=== PATIENT | female | born 1985 | race Caucasian/White ===

== ENCOUNTER 2019-07-05 07:21 | Day surgery (SDC) | payer OTHER ==
[~2019-07-05] VITALS: Ht 160 cm; Wt 72.6 kg
[2019-07-05] MEDS ORDERED: BUPIVACAINE-MPF 0.5% 30 ML VIAL INJ ONE (08:38)
[2019-07-05] MEDS ORDERED: SEVOFLURANE 250 ML BTL INH ONE (08:53)
[2019-07-05] MEDS ORDERED: PROPOFOL 200 MG/20 ML VIAL IV ONE (08:53)
[2019-07-05] MEDS ORDERED: LIDOCAINE 2% 100 MG/5 ML SYR IVP ONE (08:53)
[2019-07-05] MEDS ORDERED: MIDAZOLAM 2 MG/2 ML VIAL ONE (08:56)
[2019-07-05] MEDS ORDERED: fentaNYL 0.05 MG/ML VIAL ONE (08:56)
[2019-07-05] MEDS ORDERED: HYDROmorphone 1 MG/ML AMP IVP PRN ×2 (09:20→09:45)
[2019-07-05] MEDS ORDERED: ONDANSETRON 4 MG/2 ML VIAL IVP PRN (09:20)
[2019-07-05] MEDS ORDERED: HYDROcodone/APAP 5/325 MG 1 TAB TAB PO PRN (09:45)
[2019-07-05] MEDS ORDERED: MORPHINE SULFATE 4 MG/ML SYR IV PRN (09:45)
[2019-07-05] MEDS ORDERED: MORPHINE SULFATE 2 MG/ML SYR IVP PRN (09:45)
[2019-07-05] MEDS ORDERED: ACETAMINOPHEN 325 MG TAB PO PRN (09:45)
[2019-07-05] MEDS ORDERED: ONDANSETRON 4 MG/2 ML VIAL IV PRN (09:45)
--- NOTE | 2019-07-05 11:11 | NUR ---
KEEP SCHEDULED APPOINMENT Addendum: 07/05/19 at 1111 by Marlin East RN Amended: Links added.
== END 2019-07-05 11:35 | disposition home or self-care (01) ==
LOC: MOR 07:21 → MMU 07:22 → MOR 11:35
PROVIDERS: ATTEND Surgery
DX: N60.81 Other benign mammary dysplasias of right breast (principal); Z79.899 Other long term (current) drug therapy
CPT/HCPCS: 19120; 71045; 88305; J0690; J2001; J2250; J2704; J3010; J3490; J7060; J7120